=== PATIENT | male | born 1950 | race Caucasian/White ===

== ENCOUNTER → 2019-04-06 | Outpatient (CLI) | payer OTHER ==
[~2019-04-06] VITALS: Ht 180.3 cm; Wt 113.4 kg
[~2019-04-06] MED LIST: ALTACE10 MG PO; ASPIR 8181 MG PO; ASPIRIN325 PO; ATORVASTATIN CA40 MG PO; BYSTOLIC 5 MG5 M1 PO; FENOFIBRATE160 MG PO; FERRIC X-150150 MG PO; HYDROCODONE-AP1 EAC6 PO; OMEGA-31000 M1 PO; OSTERA TABLET1 EAC1 PO; PACERONE 200 M200 M1 PO; TOPROL XL25 MG PO; UNICOMPLEX M TA1 TA1 PO; VITAMIN D35000 UNI1 PO; ZETIA10 MG PO
--- NOTE | 2019-04-07 16:03 | P ---
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 Original plans were for him to return in 1 year. PREOPERATIVE DIAGNOSIS: High-risk screening, history of polyps with an advanced adenoma. POSTOPERATIVE DIAGNOSES: 1. Colon polyps. 2. Moderately severe diverticulosis coli, mostly left colon, but also right colon. 3. Internal hemorrhoids with evidence of prolapse. MEDICATIONS: Deep sedation with propofol per anesthesia. SPECIMENS: 1. Polyp at 30 cm. 2. Polyp, proximal ascending colon at previous polypectomy site. 3. Polyp at 50 cm. ESTIMATED BLOOD LOSS: 3 mL. PROCEDURE: Colonoscopy to cecum and terminal ileum with snare polypectomy and biopsy. FINDINGS: Prior to propofol sedation, procedure of colonoscopy discussed with the patient as well as potential risks and its complications. He indicates he understands and desires to proceed. DESCRIPTION OF PROCEDURE: With the patient in left lateral decubitus position, digital examination was completed, which revealed no abnormalities. Subsequently, the Olympus video colonoscope was introduced in the rectum, advanced under direct vision to the cecum. Done with some difficulty as he has extensive diverticular disease of the sigmoid colon. However, the cecum was reached and identified by the ileocecal valve and the appendiceal orifice. I was able to advance the scope to the mouth of the ileocecal valve and see a [facility] [address] [place] [address] PROCEDURE REPORT Name: ROSA MATHUR Room #: REG [facility].#: [id number] Admission: 04/06/19 Attend Phys: Pilo Anderson MD Discharge: Date of : 46 Report #: [id number] villous pattern, but due to looping, we could not deeply insert the scope into the ileum. At that point, the scope was slowly withdrawn and careful circumferential views were obtained. There were noted to be prep limitations with scattered residual material. We irrigated and then suctioned as much as possible. Overall, after suctioning, adequate prep was obtained. As we withdrew the scope, the proximal ascending colon, he was noted to have two tattoo blankenship from previous polypectomy. In between the tattoos was a sessile 5-mm polyp. This was removed with cold snare polypectomy and one residual fragment was cleaned up with biopsy forceps. The scope was further withdrawn and he was noted to have a few scattered diverticula in the proximal colon, but no other polyps were seen until the descending colon at 50 cm, a diminutive polyp was seen and removed with biopsy forceps. The scope was further withdrawn and he was noted to have extensive diverticular disease of the sigmoid colon without endoscopic evidence of diverticulitis. He was found to have a diminutive polyp that was actually in the mouth of the diverticulum and this was removed with cold biopsy forceps. Scope was further withdrawn and no additional abnormalities were seen. Scope was withdrawn in the rectum, no abnormalities were seen until upon retroflexion. He was noted to have [id number] internal hemorrhoids. It was noted there was evidence of hemorrhoidal prolapse. Scope was withdrawn. The patient tolerated the procedure well. CONDITION OF THE PATIENT UPON DISCHARGE: Following procedure, the patient drowsy, aroused, conversant and will be discharged to home when fully ambulatory. INSTRUCTIONS TO THE PATIENT AND FAMILY AT THE TIME OF DISCHARGE: We will follow up on the pathology. However, in view of the fact he had an advanced adenoma with residual polyp remaining and some limitations of prep, advised to return in 3 years for high-risk screening colonoscopy. He will otherwise return to the care of Dr. Paula. Last colonoscopy was about 5-1/2 years ago. Withdrawal time from the cecum including cleanup was 16 minutes 52 seconds. <ELECTRONICALLY SIGNED> By: Pilo Anderson MD 04/07/19 1603 [id number] Pilo Anderson MD /nt
--- NOTE | 2019-04-08 17:06 | PATH ---
[facility] [address] [place] [address] PATHOLOGY RPT PROCEDURE Name: ROSA MATHUR Room #: REG [facility].#: [id number] Admission: 04/06/19 Date of : 46 Discharge: Report #: [id number] Path Case #: [id number] [facility] Accession Number: [id number] . 01 Material submitted: . PART A: colon - BIOPSY POLYP AT 30CM PART B: colon - PROXIMAL ASCENDING COLON POLYP. Modifiers: proximal, ascending PART C: colon - BIOPSY POLYP AT 50CM . 01 Clinical history: . Pre-op diagnosis: History of polyps, recheck Post-op diagnosis: Colon polyps, diverticulosis, hemorrhoids . 02 Diagnosis: A. Polyp, at 30 cm, endoscopic biopsy: - Hyperplastic polyp. - Negative for dysplasia. . B. Polyp, proximal ascending colon polyp, endoscopic biopsy: - Tubular adenoma. - Negative for high-grade dysplasia. . C. Polyp, at 50 cm, endoscopic biopsy: - Hyperplastic polyp. - Negative for dysplasia (IUV:pit; 04/08/2019) QTP 04/08/2019 1152 Local . 02 Electronically signed: . Summer Link MD, Pathologist NPI- [id number] . 01 Gross description: . A. The specimen is received in formalin, labeled "Rosa Mathur Sr., biopsy polyp at 30 cm". Received are two segments of pale carter soft tissue ranging in size from 0.2 to 0.3 cm in maximum dimensions. The specimen is submitted entirely in cassette A1. . B. The specimen is received in formalin, labeled "Rosa Mathur Sr., proximal ascending colon polyp". Received are two segments of pale carter soft tissue ranging in size from 0.3 to 1.0 cm in maximum dimensions. The specimen is submitted entirely in cassette B1. . C. The specimen is received in formalin, labeled "oRsa Mathur Sr., biopsy polyp at 50 cm". Received is a segment of pale carter soft tissue measuring 0.6 cm in maximum dimensions. The [place] [address] PATHOLOGY RPT PROCEDURE Name: ROSA MAHTUR Room #: REG [facility]#: [id number] Admission: 04/06/19 Date of : 46 Discharge: Report #: [id number] Path Case #: [id number] cassette C1. (CAA; 04/07/2019) QAC/QAC 04/07/2019 1109 [facility] . 02 Pathologist provided ICD-10: K63.5, D12.2 . 02 CPT . 976526, 006854, 870140 Specimen Comment: A courtesy copy of this report has been sent to [phone], [phone] Specimen Comment: [phone] Specimen Comment: Report sent to / DR SANDRA Performed at: [address], [place] [id number] MD Fredis Jeffery MD Phone: [phone] Performed at: [address] [id number] MD Summer Link MD Phone: [phone]
== END | disposition home or self-care (01) ==
LOC: GI 07:00
DX: Z12.11 Encounter for screening for malignant neoplasm of colon (principal); Z86.010 Personal history of colon polyps; D12.2 Benign neoplasm of ascending colon; K57.30 Diverticulosis of large intestine without perforation or abscess without bleeding; K64.8 Other hemorrhoids; I10 Essential (primary) hypertension; I25.10 Atherosclerotic heart disease of native coronary artery without angina pectoris; M19.90 Unspecified osteoarthritis, unspecified site; E78.5 Hyperlipidemia, unspecified; E66.09 Other obesity due to excess calories; Z98.890 Other specified postprocedural states; Z79.899 Other long term (current) drug therapy; Z87.891 Personal history of nicotine dependence; Z95.1 Presence of aortocoronary bypass graft; Z68.34 Body mass index [BMI] 34.0-34.9, adult
CPT/HCPCS: 62110; 62900

== ENCOUNTER → 2019-12-24 | Outpatient (CLI) | payer OTHER | LOC: SJCVCIMAG 07:56 | PROVIDERS: ATTEND Internal Medicine Cardiovascular Disease | DX: Z01.818 Encounter for other preprocedural examination (principal); I45.10 Unspecified right bundle-branch block; I49.3 Ventricular premature depolarization; I44.0 Atrioventricular block, first degree; I25.10 Atherosclerotic heart disease of native coronary artery without angina pectoris; Z79.899 Other long term (current) drug therapy ==

== ENCOUNTER → 2021-01-17 | Outpatient (CLI) | payer OTHER | LOC: SJCVCIMAG 06:36 | PROVIDERS: ATTEND Internal Medicine Cardiovascular Disease | DX: I08.8 Other rheumatic multiple valve diseases (principal); I49.3 Ventricular premature depolarization; R06.00 Dyspnea, unspecified; I44.0 Atrioventricular block, first degree; I77.89 Other specified disorders of arteries and arterioles; I48.91 Unspecified atrial fibrillation; I25.10 Atherosclerotic heart disease of native coronary artery without angina pectoris; I10 Essential (primary) hypertension; E78.5 Hyperlipidemia, unspecified; Z88.2 Allergy status to sulfonamides; Z79.899 Other long term (current) drug therapy; Z87.891 Personal history of nicotine dependence ==

== ENCOUNTER → 2021-03-02 | Outpatient (CLI) | payer OTHER | LOC: SJCVC 09:46 | PROVIDERS: ATTEND Internal Medicine Cardiovascular Disease | DX: R94.31 Abnormal electrocardiogram [ECG] [EKG] (principal); I45.10 Unspecified right bundle-branch block; I25.10 Atherosclerotic heart disease of native coronary artery without angina pectoris; I10 Essential (primary) hypertension; I48.91 Unspecified atrial fibrillation; E78.00 Pure hypercholesterolemia, unspecified; N52.9 Male erectile dysfunction, unspecified; E11.9 Type 2 diabetes mellitus without complications; E66.9 Obesity, unspecified; Z82.49 Family history of ischemic heart disease and other diseases of the circulatory system; Z79.82 Long term (current) use of aspirin; Z79.899 Other long term (current) drug therapy; Z88.2 Allergy status to sulfonamides; Z72.89 Other problems related to lifestyle; Z87.891 Personal history of nicotine dependence ==